=== PATIENT | female | born 2000 | race Caucasian/White ===

== ENCOUNTER 2020-10-02 20:41 | Emergency (ER) | payer SELFPAY ==
[2020-10-03 13:49] LABS: SARS-CoV-2 PCR by NAA Not Detected (NotDetected)
== END 2020-10-02 21:20 | disposition home or self-care (01) ==
LOC: BURERS 20:41
DX: R10.13 Epigastric pain (principal); R19.7 Diarrhea, unspecified; Z20.822 Contact with and (suspected) exposure to COVID-19; F17.290 Nicotine dependence, other tobacco product, uncomplicated
CPT/HCPCS: 87635; 87804; 99284; U0003; U0005

== ENCOUNTER 2022-12-01 17:46 | Emergency (ER) | payer OTHER, SELFPAY ==
[2022-12-01] MEDS ORDERED: Budesonide 0.5 MG/2 ML NEB ONE (17:59)
[2022-12-01] MEDS ORDERED: Ipratropium/Albuterol 3 ML NEB ONE (17:59)
== END 2022-12-01 19:22 | disposition home or self-care (01) ==
LOC: BURERS 17:46
DX: J20.9 Acute bronchitis, unspecified (principal); F17.290 Nicotine dependence, other tobacco product, uncomplicated
CPT/HCPCS: 71046; 87804; 87807; J7620; J7626

== ENCOUNTER 2023-07-13 08:55 | Emergency (ER) | payer OTHER, SELFPAY | END 2023-07-13 09:48 | disposition home or self-care (01) | LOC: BURERS 08:55 | DX: S61.052A Open bite of left thumb without damage to nail, initial encounter (principal); W53.21XA Bitten by squirrel, initial encounter | CPT/HCPCS: 99283 ==